=== PATIENT | female | born 2000 | race American Indian/Alaskan Native ===

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

== ENCOUNTER 2023-07-08 07:38 | Inpatient (IN) | payer MEDICAID ==
[2023-07-08] MEDS ORDERED: Carboprost Tromethamine 250 MCG/1 ML Amp IM PRN (07:59)
[2023-07-08] MEDS ORDERED: Methylergonovine 0.2 MG/1 ML Amp IM PRN (07:59)
[2023-07-08] MEDS ORDERED: Misoprostol 400 MCG (4 X 100 MCG TAB) RECTAL PRN (07:59)
[2023-07-08] MEDS ORDERED: Acetaminophen 325 MG Tab PO PRN (07:59)
[2023-07-08] MEDS ORDERED: Sodium Chloride 0.9% 10 ML Syringe FLUSH PRN (07:59)
[2023-07-08] MEDS ORDERED: Oxytocin/Normal Saline 30 UNIT/500 ML BAG IV SCH (08:00)
[2023-07-08 08:34] LABS: HEMATOCRIT 35.5 % (37.0-47.0); HEMOGLOBIN 11.5 g/dL (12.0-16.0); MEAN CORPUSCULAR HEMOGLOBIN 29.3 pg (27.0-34.0); MEAN CORPUSCULAR HGB CONC 32.4 g/dL (33.0-35.0); MEAN CORPUSCULAR VOLUME 90.3 fL (80-100); RED BLOOD CELL COUNT 3.93 10^6/uL (4.2-5.4); WHITE BLOOD CELL COUNT,WBC 6.8 10^3/uL (5.0-10.0)
[2023-07-08] MEDS: Misoprostol 25 MCG (1/4 of 100 MCG) Tab VAG SCH (08:40)
[2023-07-08] MEDS: Lactated Ringers 1,000 ML IV SCH (12:45)
[2023-07-08] MEDS: Penicillin G Potassium 3 MILLUNITS in Sodium Chloride 0.9% 100 ML IV SCH (14:40)
[2023-07-08] MEDS: hydrOXYzine HCl 25 MG Tab PO PRN ×2 (15:15→23:04)
[2023-07-08] MEDS: Penicillin G Potassium 5 MILLUNITS in Sodium Chloride 0.9% 100 ML IV ONE (22:18)
[2023-07-09] MEDS: hydrOXYzine HCl 25 MG Tab PO ONE (05:04)
[2023-07-09] MEDS: Oxytocin/Normal Saline 30 UNIT/500 ML BAG IV SCH (08:34)
[2023-07-09] MEDS: fentaNYL 100 MCG/2 ML SDV IVPUSH ONE ×2 (12:04→14:15)
[2023-07-09] MEDS ORDERED: fentaNYL 100 MCG/2 ML SDV ONE (15:28)
[2023-07-09] MEDS ORDERED: Bupivacaine 0.25% 10 ML SDV ONE (15:28)
[2023-07-09] MEDS ORDERED: Phenylephrine HCl In 0.9% NaCl 1 MG/10 ML Syringe IVPUSH PRN (15:52)
[2023-07-09] MEDS ORDERED: ePHEDrine 50 MG/ML SDV IVPUSH PRN (15:52)
[2023-07-09] MEDS ORDERED: Ropivacaine 200 MG in Premix Bag 1 BAG EPIDUR SCH (16:00)
[2023-07-09] MEDS: Ondansetron 4 MG/2 ML SDV IVPUSH PRN (16:14)
[2023-07-09] MEDS: Tranexamic Acid 1,000 MG in Sodium Chloride 0.9% 100 ML IV PRN (17:37)
[2023-07-09] MEDS: Oxytocin 10 Units/1 ML SDV IM PRN (17:44)
[2023-07-09] MEDS ORDERED: Simethicone 80 MG Tab.Chew PO PRN (17:58)
[2023-07-09] MEDS: Acetaminophen 325 MG Tab PO PRN (18:18)
[2023-07-09] MEDS: Ibuprofen 800 MG Tab PO PRN (20:41)
[2023-07-09] MEDS: Witch Hazel Medicated Pads 100/Jar TOP PRN (20:42)
[2023-07-09] MEDS: Benzocaine/Menthol 20%-0.5% Spray 78 GM Cannister TOP PRN (20:42)
[2023-07-09] MEDS: Lidocaine 1% 30 ML SDV INJECT ONE (23:13)
[2023-07-09] MEDS: Lactated Ringers 1,000 ML IV ONE (23:13)
[2023-07-10] MEDS: Ferrous Sulfate 325 MG Tab PO SCH (08:26)
[2023-07-10] MEDS: Docusate Sodium 100 MG Cap PO PRN (08:27)
[2023-07-10] MEDS: Prenatal Multivitamin with Calcium/Folic Acid/Iron Tab PO SCH (08:27)
[2023-07-10 18:48] LABS: HEMATOCRIT 33.6 % (37.0-47.0); HEMOGLOBIN 10.8 g/dL (12.0-16.0); MEAN CORPUSCULAR HEMOGLOBIN 29.8 pg (27.0-34.0); MEAN CORPUSCULAR HGB CONC 32.1 g/dL (33.0-35.0); MEAN CORPUSCULAR VOLUME 92.6 fL (80-100); RED BLOOD CELL COUNT 3.63 10^6/uL (4.2-5.4)
== END 2023-07-11 12:45 | disposition home or self-care (01) | DRG 806 ==
LOC: DL.OB 07:38 → OBSVTOIN 07-09 17:26
PROVIDERS: ADMIT Family Medicine; ATTEND Family Medicine
PROC: 10E0XZZ Delivery of Products of Conception, External Approach (ICD-10-PCS; principal; 2023-07-09)
PROC: 10907ZC Drainage of Amniotic Fluid, Therapeutic from Products of Conception, Via Natural or Artificial Opening (ICD-10-PCS; 2023-07-09)
PROC: 3E0P7VZ Introduction of Hormone into Female Reproductive, Via Natural or Artificial Opening (ICD-10-PCS; 2023-07-09)
PROC: 0HQ9XZZ Repair Perineum Skin, External Approach (ICD-10-PCS; 2023-07-09)
PROC: 3E0R3BZ Introduction of Anesthetic Agent into Spinal Canal, Percutaneous Approach (ICD-10-PCS; 2023-07-09)
PROC: 00HU33Z Insertion of Infusion Device into Spinal Canal, Percutaneous Approach (ICD-10-PCS; 2023-07-09)
DX: O48.0 Post-term pregnancy (principal); O72.0 Third-stage hemorrhage; Z37.0 Single live birth; O99.02 Anemia complicating childbirth; O99.824 Streptococcus B carrier state complicating childbirth; O69.81X0 Labor and delivery complicated by cord around neck, without compression, not applicable or unspecified; O70.0 First degree perineal laceration during delivery; O62.2 Other uterine inertia; Z3A.41 41 weeks gestation of pregnancy
CPT/HCPCS: 36415; 59409; 85027; A9270-GY; J2405; J2540; J2590; J3010; J3490; J7120

== ENCOUNTER 2025-01-29 05:06 | Emergency (ER) | payer MEDICAID ==
[2025-01-29] MEDS: Take Home: Acetaminophen/HYDROcodone 325-5 MG, 5 Tab Pack PO ONE (05:52)
== END 2025-01-29 06:09 | disposition home or self-care (01) ==
LOC: DL.ED 05:06
DX: S82.832A Other fracture of upper and lower end of left fibula, initial encounter for closed fracture (principal); W10.8XXA Fall (on) (from) other stairs and steps, initial encounter; Y93.01 Activity, walking, marching and hiking
CPT/HCPCS: 73610; 99283; A9270; 99284